=== PATIENT | male | born 1955 | race Caucasian/White ===

== ENCOUNTER 2019-03-10 06:54 | Observation (INO) | payer OTHER ==
--- NOTE | 2019-03-09 15:12 | GHP ---
[f rep st] PREOP HISTORY AND PHYSICAL CURRENT COMPLAINT: Right shoulder pain and weakness. HISTORY OF PRESENT ILLNESS: Mr. Morejon is a 63-year-old male with a history of pain and increasing weakness into his right shoulder. Imaging studies revealed lack of a rotator cuff superiorly. He wishes to have surgery in order to resolve the problem. ALLERGIES: He lists no drug allergies. CURRENT MEDICATIONS: Include albuterol, diazepam, Endocet, Proventil. PRIOR MEDICAL PROBLEMS: Include asthma and reflux. PRIOR SURGERIES: Include a left shoulder scope with rotator cuff repair, bilateral knee replacements, and hernia repair. SOCIAL HISTORY: He has never been a smoker. He is a social drinker. PHYSICAL EXAM: HEENT: Pupils are equal, round, reactive to light. CHEST: Clear to auscultation. HEART: Regular rate and rhythm. ABDOMEN: Soft and nontender. EXTREMITIES: Shoulder has decreased range of motion with decreased strength to external rotation and supraspinatus tenderness to Speed testing. IMAGING: MRI revealed severe osteoarthritic changes at the glenohumeral joint; acetabularization of the acromion; chronic tears of supraspinatus, subscapularis , infraspinatus, and multiple loose bodies; and ossification of the coracoacromial ligament. ASSESSMENT AND PLAN: Patient is status post right shoulder arthritis with rotator cuff arthropathy and loose bodies. PLAN: Take him to the operating room to undergo an open right reverse total shoulder replacement. /[id number]/MODL MTDD
[~2019-03-10 06:54] MED LIST: ROPIVACAINE 0.2% 80 MG, EPINEPHrine 0.2 MG, KETOROLAC TROMETHAMINE 30 MG, morphINE 10 M... IU ONE; TRANEXAMIC ACID 3,000 MG in NS (SYRINGE) 50 ML IRR ONE
[2019-03-10] MEDS ORDERED: ceFAZolin 2 GM/DEXTROSE 100 ML IV ONE (07:40)
[2019-03-10] MEDS ORDERED: LR 1,000 ML IV SCH (07:40)
[2019-03-10] MEDS ORDERED: LR 1,000 ML IV ONE (07:41)
[2019-03-10] MEDS ORDERED: MIDAZOLAM 2 MG/2 ML VIAL IVP ONE (08:23)
--- NOTE | 2019-03-10 08:23 | PDANEPAE ---
ANE History of Present Illness R shoulder reverse arthroplasty ANE Past Medical History - Cardiovascular History Hx Hypertension: Yes Hx Arrhythmias: No Hx Chest Pain: No Hx Coronary Artery / Peripheral Vascular Disease: Yes Hx CHF / Valvular Disease: No Hx Palpitations: No Cardiovascular History Comment: 2016 RESULT OF LEUKEMIA - Pulmonary History Hx COPD: No Hx Asthma/Reactive Airway Disease: No Hx Recent Upper Respiratory Infection: No Hx Oxygen in Use at Home: No Hx Sleep Apnea: No Sleep Apnea Screening Result - Last Documented: Negative Pulmonary History Comment: URI 11/2018. PREV PNEUMONIA - Neurologic History Hx Cerebrovascular Accident: No Hx Seizures: No Hx Dementia: No - Endocrine History Hx Diabetes: No - Renal History Hx Renal Disorders: No - Liver History Hx Hepatic Disorders: No - Neurological & Psychiatric Hx Hx Neurological and Psychiatric Disorders: No - Cancer History Hx Cancer: Yes Cancer History Comment: ACUTE MYELOID LEUKEMIA DX 12/2015,TREATED WITH CHEMO - Congenital Disorder History Hx Congenital Disorders: No - GI History Hx Gastrointestinal Disorders: Yes Gastrointestinal History Comment: HEARTBURN. MISSING TEETH - Chronic Pain History Chronic Pain: Yes (RT SHLDR) - Surgical History Prior Surgeries: CERVICAL FUSION. BILATERAL TOTAL KNEE'S ANE Review of Systems Review of systems is: negative Review of Systems: - Exercise capacity METS (RN): 5 METS ANE Patient History - Allergies Allergies/Adverse Reactions: No Allergies [NKDA] Allergy (Verified 09/23/09 11:50) - Home Medications Home medications: home medication list seen and reviewed Home Medications: Carvedilol [Coreg (*)] 3.125 mg PO BIDMEAL 02/27/19 [Last Taken 03/10/19] Lisinopril [Zestril 2.5 mg (*)] 2.5 mg PO DAILY 02/27/19 [Last Taken 03/08/19] Omeprazole 20 mg PO DAILY 03/03/19 [Last Taken 03/10/19] - NPO status NPO Since - Liquids (Date): 03/10/19 NPO Since - Liquids (Time): 03:00 NPO Since - Solids (Date): 03/09/19 NPO Since - Solids (Time): 23:30 - Anes Hx Anes Hx: no prior problems - Smoking Hx Smoking Status: Never smoked - Family Anes Hx Family Anes Hx: none ANE Labs/Vital Signs - Vital Signs Vital Signs: reviewed preoperatively; see RN documention for details Blood Pressure: 129/97 Heart Rate: 70 Respiratory Rate: 16 O2 Sat (%): 93 Height: 172.72 cm Weight: 86.183 kg ANE Physical Exam - Airway Neck exam: FROM Mallampati Score: Class 2 Mouth exam: normal dental/mouth exam - Pulmonary Pulmonary: no respiratory distress - Cardiovascular Cardiovascular: regular rate and rhythym - ASA Status ASA Status: III ANE Anesthesia Plan Anesthesia Plan: GA w LMA Regional Anesthesia: single shot NB, interscalene BP NB (post op pain)
[2019-03-10] MEDS ORDERED: MIDAZOLAM 2 MG/2 ML VIAL ONE (08:44)
[2019-03-10] MEDS ORDERED: ROPIVACAINE HCL 150 MG/30 ML INJ ONE (08:45)
[2019-03-10] MEDS ORDERED: POVIDONE-IODINE 20 ML in SODIUM CL IRRIG SOLUTION 500 ML IRR ONE (09:00)
--- NOTE | 2019-03-10 09:07 | PDHPUP ---
History & Physical Update H&P update statement: This history and physical update is based on an assessment of the patient which was completed after admission or registration (within 24 hours), but prior to the surgery/procedure. H&P update: H&P reviewed & patient examined, no change in patient's condition since H&P completed
[2019-03-10] MEDS ORDERED: TRANEXAMIC ACID 3,000 MG/50 ML BAG IRR ONE (09:15)
[2019-03-10] MEDS ORDERED: ONDANSETRON 4 MG/2 ML VIAL ONE (09:33)
[2019-03-10] MEDS ORDERED: PROPOFOL 200 MG/20 ML VIAL ONE (09:33)
[2019-03-10] MEDS ORDERED: LIDOCAINE 2% 100 MG/5 ML SYR ONE (09:33)
[2019-03-10] MEDS ORDERED: DEXAMETHASONE 4 MG/ML VIAL ONE (09:33)
[2019-03-10] MEDS ORDERED: fentaNYL 100 MCG/2 ML INJ ONE (09:33)
[2019-03-10] MEDS ORDERED: PHENYLEPHRINE HCL 100 MCG/ML SYR ONE (09:55)
[2019-03-10] MEDS ORDERED: PHENYLEPHRINE 10 MG/ML SDV ONE (10:25)
[2019-03-10] MEDS ORDERED: BUPIVACAINE/EPI 0.5% 30 ML SDV ONE (11:21)
[2019-03-10] MEDS ORDERED: ACETAMINOPHEN 325 MG TAB PO PRN (11:46)
[2019-03-10] MEDS ORDERED: ONDANSETRON 4 MG/2 ML VIAL IVP PRN ×2 (11:46→12:14)
[2019-03-10] MEDS ORDERED: TEMAZEPAM 15 MG CAP PO PRN (11:46)
[2019-03-10] MEDS ORDERED: OXYCODONE/APAP 5/325 TAB PO PRN (11:46)
--- NOTE | 2019-03-10 11:46 | POSTOPPROG ---
Post Op Note Date of Operation: 03/10/19 Surgeon: Elsie Rose [employer] Officer: natalie pacheco Anesthesia: GET(General Endotracheal), Other (Specify) Pre-op Diagnosis: r shoulder oa with rct Procedure: r reverse tsa Inf/Abcess present in the surg proc area at time of surgery?: No Depth: Deep Incisional (Fascial) EBL: 100-500
[2019-03-10] MEDS ORDERED: NALOXONE HCL 0.4 MG/ML INJ IVP PRN (12:14)
[2019-03-10] MEDS ORDERED: oxyCODONE IR 5 MG TAB PO PRN (12:14)
[2019-03-10] MEDS ORDERED: HYDROmorphONE/DILAUDID 1 MG/ML INJ IVP PRN (12:14)
[2019-03-10] MEDS ORDERED: fentaNYL 100 MCG/2 ML INJ IVP PRN (12:14)
[2019-03-10] MEDS ORDERED: DEXAMETHASONE 4 MG/ML VIAL IVP PRN (12:14)
[2019-03-10] MEDS ORDERED: MEPERIDINE 25 MG/0.5 ML AMP IVP PRN (12:14)
[2019-03-10] MEDS ORDERED: HYDROCODONE/APAP 5/325 TAB PO PRN (12:14)
[2019-03-10] MEDS ORDERED: PROMETHAZINE HCL 25 MG/ML INJ IVP PRN (12:14)
--- NOTE | 2019-03-10 12:15 | POSTANESTH ---
Post Anesthetic Evaluation Cardiovascular Status: Similar to Pre-Op Cond Respiratory Status: Similar to Pre-op Cond. Level of Consciousness/Mental Status: Can Participate in Eval, Mildly Sleepy, Arousable Pain Control: Adequate, Prn Tx Ordered Nausea/Vomiting Control: Adequate, Prn Tx Ordered Complications Possibly Related to Anesthesia: None Noted
--- NOTE | 2019-03-10 13:55 | GOP ---
[f rep st] OPERATIVE REPORT DATE OF OPERATION: 03/10/2019 SURGEON: Elsie Rose MD PAINTING TRADES WORKER: Edgar Sosa, certified PA whose presence was medically necessary. ANESTHESIA: By endotracheal intubation plus scalene block per surgeon's request. PREOPERATIVE DIAGNOSIS: Right shoulder arthritis with chronic rotator cuff tear. POSTOPERATIVE DIAGNOSIS: Right shoulder arthritis with chronic rotator cuff tear with multiple loose bodies. PROCEDURE PERFORMED: FINDINGS: DESCRIPTION OF PROCEDURE: The patient was brought to the operating room after the right side had bee n identified as correct side by the patient, nurse and physician once in the operating room. He was given a scalene block on the right side, then placed under anesthesia using endotracheal intubation. Once asleep, he was placed in a beach chair position with the right upper extremity sterilely preppe d and draped in the usual fashion using GSI solution. Once prepped and draped, incision was made jus t lateral to the coracoid process and extending to the axillary crease with sharp dissection carried down through the skin and subcutaneous layers with bleeding controlled using electrocautery. Blunt d issection was carried out at the deltopectoral interval. Cephalic vein taken with the deltoid, gaini ng access to the next layer of musculature. The conjoined tendon was then dissected free of the fasc ia. The biceps groove was able to be palpated. There was no biceps tendon noted to be within it. I ncision was made 1 cm medial to the lesser tuberosity with sharp dissection carried through the capsu lar layer and whatever remnant of subscapular there might have been, gaining access into the shoulder joint. The arm was then able to be externally rotated with the humeral head subluxed anteriorly. W as noted to have eburnated bone at its medial surface of both superior surfaces where it had been rub chaparro against the acromion for the last several years causing acetabularization of the acromion. Cutt ing guide was put into place. An oscillating saw was used to remove the hemisphere of the humeral he ad. Once achieved, canal finder was passed within the humeral canal. Multiple stems were then broac hed into the stem. Noted a size 14 fit best. It was therefore added onto a standard body, inserted as a trial into the humeral neck. A reamer was used to create a concavity associated with the xavier l socket. Trial was put into place and left in place while attention was turned to the glenoid. The arm was brought to a more neutral position, subluxed posteriorly. Glenoid retractors were placed an teriorly and posteriorly. Multiple loose bodies removed from the anterior portion of the shoulder, a s well as the inferior portion of the glenoid. The labrum was removed from the glenoid in order to h ave better access. A sizing guide was put on the inferior lip of the glenoid and the guidewire was p ut into place and a glenoid reamer was then put into place. Was used until achieving eburnated bone. Noted to have more bone reamed inferiorly than superiorly, suggesting an adequate inferior slope to the base plate. Once in place, the guidewire was left in place and a cannulated drill was passed ov er the guidewire. A trial was then put into place and lug drills were made superior and inferiorly. Once in place, an RSS glenoid base plate was put into place and noted to fit securely. A screw was placed in its center hole with a screw placed in superior and inferior portion and the anterior and p osterior portion with the superior and inferior screws, having locking caps placed on them and eccent sheri trial was put in place and noted to fit well with good overhang inferiorly at the glenoid neck. Therefore, the trial was removed. Attention was turned back to the humeral component with a size 14 press-fit stem attached onto a aldair dard size, reverse body and reverse body screw. Once these were assembled together and placed within the proximal femur, impacted into place. Was noted to fit securely. Attention was turned back to the glenoid which had an eccentric S5 mm glenosphere put into place and noted to fit securely and was fit with a secondary impactor also. Once in place, multiple trials wer e placed within the humerus. Noted a +9 liner seemed to fit best. Therefore, this was snapped into place. The arm was then reduced, brought through range of motion. Noted to have good tension into t he deltoid and the coracobrachialis. Joint cocktail was injected into the posterior capsule, and the area around the deltoid and the pectoralis. The wound was thoroughly irrigated with Betadine soluti on and then irrigated with tranexamic acid. The wound was then closed in layers to include 0 Vicryl suture for the anterior capsular layer and to tag the deltopectoral interval. 0 Vicryl and 2-0 Vicry l suture for subcutaneous layers and a 3-0 V-Loc suture in a running subcuticular stitch for the skin . 30 cc of Marcaine was infused around the actual skin incision itself and then the skin was dressed with Steri-Strips, Xeroform, 4 x 4, and Tegaderm. The patient was completely undraped in the operat ing room, had a sling placed on the right upper extremity. Was then woken up, extubated, transferred onto a stretcher, and sent to recovery room in good condition. PROCEDURE PERFORMED: Open right reverse total shoulder arthroplasty with removal of loose bodies x2. SURGEON: Elsie Rose M.D. INDICATIONS FOR SURGERY: This is a 63-year-old male with a long history of right shoulder pain worse isha with use and with time. He has noted decreased strength and decreased function into the right u pper extremity as time has gone on. X-ray exam reveals significant osteoarthritic changes within the shoulder. Recent MRI reveals a lack of his supraspinatus and infraspinatus, subscapularis with sign ificant muscle atrophy of each. He wishes to have surgery in order to resolve the problem. /[id number]/MODL
[2019-03-10] MEDS: KETOROLAC 15 MG/1 ML SDV IVP SCH ×2 (15:09→18:23)
--- NOTE | 2019-03-10 15:51 | GCON ---
[f rep st] CONSULTATION DATE OF CONSULTATION: 03/10/2019 REFERRING PHYSICIAN: Brent Lisa MD REASON FOR CONSULTATION: We have been asked by Dr. Lisa to evaluate Mr. Morejon with EKG changes following rotator cuff surgery. HISTORY OF PRESENT ILLNESS: Mr. Morejon is a 63-year-old gentleman with known coronary artery disease, who was admitted on 03/10/2019, for elective right rotator cuff repair. The patient's surgical course was uncomplicated, however, he was noted to have EKG changes in the postoperative period and we were consulted to help in the further management of this patient. The patient was diagnosed with coronary artery disease in 2015 when he presented with an elevated troponin in the setting of acute myeloid leukemia blast crisis. The patient ultimately underwent stress testing in July 2016, demonstrating a mid to distal anterior perfusion defect consistent with ischemia. This was followed by cardiac catheterization demonstrating a chronic total occlusion of his left anterior descending coronary artery. In April 2017, percutaneous coronary intervention of his left anterior descending coronary artery was attempted, but was unsuccessful secondary to failure to pass a wire. His most recent cardiovascular evaluation in November 2017, was an echocardiogram demonstrating normal left ventricular systolic function and no regional wall motion abnormalities. The patient remains moderately active riding his bicycle on a daily basis. His typical rides are anywhere from 1-10 miles. The patient denies symptoms of chest pain or significant dyspnea with this activity. He has been using aspirin, Coreg, and lisinopril on a regular basis. His postoperative EKG demonstrates lateral T-wave inversions and ST-segment depression. This appeared to be new when compared to an EKG from 2016. However , after obtaining an EKG from October 2017, these changes are fairly similar. At this time, patient denies symptoms of chest pain, palpitations, orthopnea, and PND. PAST MEDICAL HISTORY: 1. Coronary artery disease. 2. Hypertension. 3. Acute myeloid leukemia. 4. Degenerative joint disease. 5. Gastroesophageal reflux disease. 6. Asthma. MEDICATIONS: Please see medicine reconciliation form. ALLERGIES: No known drug allergies. SOCIAL HISTORY: Patient does not smoke. He denies problems with alcohol. FAMILY HISTORY: Notable for alcohol myopathy in his mother in her 40s. REVIEW OF SYSTEMS: A 10-point review of systems is negative except as noted in HPI. PHYSICAL EXAMINATION: GENERAL: The patient is resting comfortably in bed. He does not appear to be in acute distress. He responds appropriately to questions , but is somewhat tired in the postoperative setting. VITALS: Temperature is afebrile. Pulse 60, blood pressure 124/95, respiratory rate 16, SaO2 is 94% on nasal cannula. HEENT: Normocephalic, atraumatic. Extraocular muscles intact. NECK: No JVD. No bruits. LUNGS: Clear to auscultation bilaterally. CARDIOVASCULAR: Regular rate and rhythm. S1, S2. No murmurs, rubs, or gallops appreciated. ABDOMEN: Obese, nontender. Normoactive bowel sounds. EXTREMITIES: No clubbing, cyanosis, or edema. NEURO: Patient is awake, alert , orient x3. LABORATORY DATA: Troponin is pending. EKG demonstrates sinus rhythm, inferior infarct (old), anteroseptal infarct (old ), nonspecific anterior and lateral T-wave changes, consider ischemia. ASSESSMENT AND PLAN: Mr. Morejon is a 63-year-old gentleman with: 1. EKG changes - The patient was noted to have EKG changes in the postoperative setting. However, when compared to his electrocardiogram from October 31, 2017, they are not significantly changed. 2. Coronary artery disease - Patient has a history of coronary artery disease. His left anterior descending coronary artery is chronically occluded. Attempt at percutaneous coronary intervention in 2017 was unsuccessful. He is on appropriate medical management with aspirin, Coreg, and lisinopril. Will plan on obtaining an echocardiogram to look for a regional wall motion abnormality. I think it would also be prudent to obtain serial cardiac enzymes to exclude an ischemic event. Currently he is denying symptoms of angina and is EKG is not significantly changed from previous as noted above. /[id number]/MODL MTDD
--- NOTE | 2019-03-10 17:27 | ECHO ---
[email or web address] [id number] Main: [phone] Echocardiography Examination Transthoracic Name: Sanjay FULTON MR#: [id number] Study Date: 03/10/2019 Study Time: 01:57 PM Date of : 1955 Age: 63 year(s) Height: 172.7 cm (68 in.) Weight: 86.18 kg (190 lb.) BSA: 2 m2 Gender: Male Examination: Echo Contrast: Image Quality: Fair Rhythm: Heart Rate: BP: 111 mmHg/86 mmHg Indication: Abnormal EKG Procedure Staff Referring Physician: Envelope Adjuster: Sherie Orozco ZEE Reading Physician: Kris Harrison MD Requesting Provider: Ordering Physician: Kris Harrison MD Indication: Abnormal EKG Measurements Chambers AV/MV Label Value Normal Value Label Value Normal Value LVDd, 2D 4.4 cm (4.2cm - 5.9cm) AV PGmean 2 mmHg LVDs, 2D 3 cm (2.1cm - 4cm) AV Vmax 1.03 m/s IVSd, 2D 1.1 cm (0.6cm - 1.1cm) MV E Vmax 0.39 m/s LVPWd, 2D 1.1 cm (0.6cm - 1cm) MV A Vmax 0.68 m/s LADs, 2D 4 cm (3cm - 4cm) MV E/A 0.57 Additional Vessels MV E/E' lateral 7.8 Label Value Normal Value MV E/E' septal 7.8 (0.45 - 1.25) AoAsc 3.7 cm MV E' septal 0.05 m/s AoRoot, MM 3.5 cm (2.2cm - 3.7cm) MV E' lateral 0.05 m/s MV E/E' mean 7.8 MV E' mean 0.05 m/s Conclusions 1. The left ventricle is normal in size with low normal left ventricular systolic function. The ejection fraction is estimated at 55%. The apex is hypokinetic. 2. The aortic valve is not well seen. There is no aortic stenosis or insufficiency by Doppler. 3. The mitral valve is normal in structure. There is trivial mitral regurgitation. 4. The pulmonary artery pressure estimate is within normal limits. 5. No old studies for comparison. Patient: Sanjay FULTON Study Date: 03/10/2019 Page 1 of 2 01:57 PM Findings Left Ventricle: E/a wave reversal.. Left ventricle is normal in size. Low normal left ventricular systolic function. EF range is estimated at 55 % - 60 %. There is apical hypokinesis. IVS: The septum is intact. Right Ventricle: Normal size right ventricle. Right ventricular systolic function is normal. Left Atrium: The left atrium is normal in size. Right Atrium: The right atrium is normal in size. Mitral Valve: Mitral valve appears structurally normal. Trivial mitral regurgitation. No mitral valve stenosis. Aortic Valve: Aortic valve opens well (confirmed by low velocities).. No aortic valve regurgitation. There is no aortic stenosis. Tricuspid Valve: Tricuspid valve leaflets are normal in appearance and function. No tricuspid regurgitation. No tricuspid valve stenosis. Pulmonary artery pressure normal. Pulmonic Valve: Pulmonic leaflets exhibit normal cuspal separation. Trivial pulmonic valve regurgitation is present. There is no pulmonic valve stenosis. Aorta: The aorta is normal. The aortic root size in M-mode measures 3.5 cm. The ascending aorta measures 3.7 cm. Aorta Measurements AoRoot, MM is 3.5 cm. IVC: The inferior vena cava is not well visualized. Pericardium: No pericardial effusion. No pleural effusion present. Exam Details Procedure Ordered: Echo Procedure Status: Routine study Image Quality: Fair Facility Location: Cardiac Echo 1 (No Signature Object) Patient: Sanjay FULTON Study Date: 03/10/2019 Page 2 of 2 01:57 PM [id number]
--- NOTE | 2019-03-10 17:40 | PDHOSCONS ---
<Latoya Shields - Last Filed: 03/10/19 18:22> History and Physical - Chief Complaint Post-operative abnormal EKG - History of Present Illness 63 y/o male w/hx of CAD, asthma, GERD, acute myeloid leukemia, and DJD is s/p POD #0 open right reverse total shoulder arthroplasty by Dr. Elsie Rose. Hospital medicine has been asked to consult by cardiology. No complications pre-or intra-op however post-operatively, his EKG demonstrated lateral TWI and ST depressions. Dr. Harrison (chain link fence installer) has consulted the pt. He was evaluated in his room PCU. Reports feeling "fine." Denies CP, palpitations, SOB, nausea, vomiting. History Information - Allergies/Home Medication List Allergies/Adverse Reactions: No Allergies [NKDA] Allergy (Verified 09/23/09 11:50) Home Medications: Carvedilol [Coreg (*)] 3.125 mg PO BIDMEAL 02/27/19 [Last Taken 03/10/19] Lisinopril [Zestril 2.5 mg (*)] 2.5 mg PO DAILY 02/27/19 [Last Taken 03/08/19] Omeprazole 20 mg PO DAILY 03/03/19 [Last Taken 03/10/19] I have personally reviewed and updated: family history, medical history, social history, surgical history Past Medical History: GERD, acute myeloid leukemia, DJD - Past Medical History asthma, coronary artery disease, hypertension - Surgical History Additional surgical history: Left shoulder arthroplasty (2013), bilateral knee replacement (2008), hernia repair - Family History Additional family history: Mother w/alcohol myopathy - Social History Smoking Status: Never smoked Alcohol Use: Rarely Drug Use: None Review of Systems Review of Systems: ROS: 10pt was reviewed & negative except for what was stated in HPI & below Physical Exam Physical Exam: Labs and imaging were reviewed. Case discussed w/consulting physician, Dr. Tushar Chan. Troponin: 0.012 EKG: See HPI however similar findings to an EKG dated October 2017 Echocardiogram: Left ventricular is normal in size with low normal left ventricular systolic function. Ejection fraction is estimated at 55%. The apex is hypokinetic. The aortic valve is not very well seen and there is no aortic stenosis or insufficiency by Doppler. The mitral valve is normal in structure and there is trivial mitral regurgitation. The pulmonary artery pressure estimate is within normal limits. Temp Pulse Resp BP Pulse Ox 36.4 C 70 18 125/102 H 94 03/10/19 12:06 03/10/19 09:27 03/10/19 17:01 03/10/19 17:01 03/10/19 17:01 O2 (L/minute) 1 Constitutional: no apparent distress, appears nourished, not in pain Eyes: PERRL, anicteric sclera, EOMI Ears, Nose, Mouth, Throat: moist mucous membranes, hearing normal, ears appear normal, no oral mucosal ulcers Cardiovascular: regular rate and rhythym, no murmur, rub, or gallop, No edema Peripheral Pulses: 2+: dorsalis-pedis (R), dorsalis-pedis (L) Respiratory: no respiratory distress, no rales or rhonchi, clear to auscultation Gastrointestinal: normoactive bowel sounds, soft, non-tender abdomen, no palpable masses Genitourinary: no bladder fullness, no bladder tenderness Skin: warm, normal color, no rashes or abrasions, no fluctuance, no induration, No mottled Musculoskeletal: other (Receive nerve block to his right shoulder region; has no sensation at this point, is not experiencing any pain. Continues to have 2+ right radial pulse) Neurologic: AAOx3, CN II-XII Intact Psychiatric: interacting appropriately, not anxious, not encephalopathic, thought process linear Lymph, Heme, Immunologic: no cervical LAD, no supraclavicular LAD Lab Data & Imaging Review Troponin I < 0.012 ng/mL (0.000-0.034) 03/10/19 14:26 Assessment & Plan Assessment: 63 y/o male w/hx of CAD, HTN, GERD, acute myeloid leukemia and asthma presenting s/p POD #0 right total shoulder arthroplasty w/post-operative EKG change of lateral TWI and ST depression however has similar findings on an EKG in Oct 2017. Vital signs are the following: Blood pressure 102/84, pulse 67, respiration 14, temperature 36.4 degrees, 93% on room air. #EKG changes -Cards has been consulted and has evaluated the pt. Please refer to Dr. Harrison' s full evaluation report for details. EKG change similar to findings in Oct 2017. He is asymptomatic at this time. -Cont tele/PCU monitoring -Checking cardiac enzymes, cycling troponin. Checking lipid panel and LFTs. #Acute myeloid leukemia -In remission -Dx in 2016 w/elevated troponin during blast crisis #CAD -D/t problem named above, underwent stress testing which demonstrated mid to distal anterior perfusion defect consistent w/ischemia -Cath demonstrated chronic total occlusion of his LAD -PCI in 2017 was attempted to LAD but unsuccessful 2/2 failure to pass a wire -Cont coreg and lisinopril #POD #0 Right total shoulder arthroplasty -Follow ortho protocol -Pain management PO/IVP PRN -PT/OT to evaluate and treat #HTN: cont coreg and lisinopril #GERD: cont PPI Hospital medicine is happy to follow pt's progress through his hospital stay. Diet: Regular Code: Full VTE ppx: Stockings Dispo: Admit to obs <Tushar Chan - Last Filed: 03/10/19 20:53> History and Physical - History of Present Illness Review of Systems Review of Systems: Physical Exam Physical Exam: Temp Pulse Resp BP Pulse Ox 36.4 C 85 16 121/85 H 94 03/10/19 18:51 03/10/19 18:51 03/10/19 18:51 03/10/19 18:51 03/10/19 18:51 O2 (L/minute) 2 Lab Data & Imaging Review Total Bilirubin 0.8 mg/dL (0.1-1.4) 03/10/19 19:20 Conjugated Bilirubin 0.1 mg/dL (0.0-0.5) 03/10/19 19:20 Unconjugated Bilirubin 0.7 mg/dL (0.0-1.1) 03/10/19 19:20 AST 39 IU/L (17-59) 03/10/19 19:20 ALT 35 IU/L (21-72) 03/10/19 19:20 Alkaline Phosphatase 62 IU/L (38-126) 03/10/19 19:20 Troponin I < 0.012 ng/mL (0.000-0.034) 03/10/19 19:20 Total Protein 6.0 g/dL (6.3-8.2) L 03/10/19 19:20 Albumin 4.0 g/dL (3.5-5.0) 03/10/19 19:20 Triglycerides 219 mg/dL (40-150) H 03/10/19 19:20 Cholesterol 224 mg/dL (140-220) H 03/10/19 19:20 Cholesterol Risk Factr 1.4 (0.2-1.0) H 03/10/19 19:20 LDL Cholesterol, Calc 142 mg/dL (80-100) H 03/10/19 19:20 LDL Risk Factor 1.2 (0.2-1.0) H 03/10/19 19:20 VLDL Cholesterol 44 mg/dL (8-25) H 03/10/19 19:20 Non-HDL Cholesterol 186 mg/dL (90-129) H 03/10/19 19:20 HDL Cholesterol 38 mg/dL (40-65) L 03/10/19 19:20 LDL/HDL Ratio 3.74 RATIO (1.00-3.64) H 03/10/19 19:20 Cholesterol/HDL Ratio 5.89 RATIO (1.00-4.97) H 03/10/19 19:20 Assessment & Plan Assessment: Patient seen and evaluated independently and care plan reviewed with BLOOD BANK TECHNICIAN [place]-- agree with her assessment and plan as outlined above. Please see separate H&P for further details. Osteoarthritis of right shoulder (Acute)
[2019-03-10] MEDS: CARVEDILOL 3.125 MG TAB PO SCH (18:23)
[2019-03-10] MEDS: ceFAZolin 2 GM/DEXTROSE 100 ML IV SCH (18:38)
[2019-03-10] MEDS: DOCUSATE SODIUM 100 MG CAP PO SCH (20:13)
--- NOTE | 2019-03-10 21:10 | HOSPPROG ---
Hospitalist Progress Note Assessment/Plan: 63 y/o male w/hx of CAD, HTN, GERD, acute myeloid leukemia and asthma presenting s/p POD #0 right total shoulder arthroplasty with concerns for post operative ecg changes. # ecg changes: in the setting of known totally occluded LAD with e/o anterior/ lateral minimal st depressions and twi that in comparison to prior were not significantly changed. Discussed with cardiology, they have performed echo showing normal EF and hypokinetic apex that is also likely unchanged. Plan to monitor on tele, serial ecg and trops. 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 The one echo without may have been an under read. # AML: previously admitted with blast crisis and now noted to be in remission # s/o right total shoulder arthroplasty: pt/ot/pain management # HTN, GERD This is a medical consultation at the request of Dr. Harrison for management and care of medical issues as above. Patient new to my care. Old records reviewed and summarized as above. Care plan reviewed with Dr. Harrison and ELECTRICAL REPAIRER Cornelius, please see her separate H&P for further details. Objective: Vital Signs Temp Pulse Resp BP Pulse Ox 36.4 C 85 16 121/85 H 94 03/10/19 18:51 03/10/19 18:51 03/10/19 18:51 03/10/19 18:51 03/10/19 18:51 03/09/19 03/10/19 03/11/19 05:59 05:59 05:59 Intake Total 490 Balance 490 ICD10 Worksheet Patient Problems: Problems Problem Status Onset Osteoarthritis of right shoulder Acute Acute renal insufficiency Acute Cellulitis of left foot Acute Hyponatremia Acute Pneumonia Acute
[2019-03-11] MEDS: KETOROLAC 15 MG/1 ML SDV IVP SCH ×2 (01:04→06:23)
[2019-03-11] MEDS: ceFAZolin 2 GM/DEXTROSE 100 ML IV SCH (03:21)
[2019-03-11] MEDS: CARVEDILOL 3.125 MG TAB PO SCH (08:29)
[2019-03-11] MEDS: DOCUSATE SODIUM 100 MG CAP PO SCH (08:30)
[2019-03-11] MEDS ORDERED: LISINOPRIL 2.5 MG TAB PO SCH (09:00)
[2019-03-11] MEDS ORDERED: PANTOPRAZOLE SODIUM 40 MG TAB PO SCH (09:00)
[2019-03-11] MEDS ORDERED: ASPIRIN 325 MG TAB PO SCH (09:00)
--- NOTE | 2019-03-11 10:05 | SOAPPROG ---
SOAP Progress Note Assessment/Plan: Assessment: s/p right reverse total shoulder arthroplasty - POD 1 - performed by Dr. Rose Abnormal EKG post-operatively History CAD, unsuccessful PCI Plan: Continue d/c planning - likely home today Continue ASA 325 mg once daily, SCDs Keep sling in place at all times except when performing elbow ROM Follow up with cardiology as directed Keep wound dressings clean, dry and intact Dr. Rose will be coming to see the patient later this afternoon Subjective: Patient states his right shoulder feels ok. The nerve block has worn off, his right arm no longer feels heavy and there is no longer any numbness or tingling into his right hand or fingers. He is hoping to go home today. I spoke to Dr. Harrison, cardiology, and he felt from his stand point the patient could go home. He is recommending that the patient start a statin. Dr. Harrison feels that the patient did not have an ischemic event yesterday after surgery. Patient denies SOB, CP, fever, chills, numbness, tingling. Objective: Vital Signs Temp Pulse Resp BP Pulse Ox 36.9 C 76 10 L 115/77 95 03/11/19 07:39 03/11/19 07:39 03/11/19 07:39 03/11/19 07:39 03/11/19 07:39 03/10/19 03/11/19 03/12/19 05:59 05:59 05:59 Intake Total 740 Balance 740 Patient resting in bed, no acute distress. Sling is in place on the RUE. RUE surgical wound dressings are clean, dry and intact. Early developing ecchymosis noted along the anteromedial aspect of the right upper arm. He can flex and extend the right elbow, wrist and fingers. Vfx Artist strengths strong and symmetric. Grossly NVI distally. ICD10 Worksheet Patient Problems: Problems Problem Status Onset Osteoarthritis of right shoulder Acute Acute renal insufficiency Acute Cellulitis of left foot Acute Hyponatremia Acute Pneumonia Acute
--- NOTE | 2019-03-11 10:16 | ASMTCASEMG ---
Living Arrangements What is your living Answers: Alone arrangement? Who do you live with? Type Of Residence What kind of residence do Answers: Apartment you live in? Discharge Plan Comments Coordination Status Comments Notes: Pt is 1 day post-op for right rotator cuff repair. CM met with him this morning. Pt lives alone at home in an apartment in [place]. He has a history of CAD, HTN, acute myeloid leukemia, and ashtma. He does not use any assistive devices at home and is independent in his ADLs. No CM needs identified at this time. CM will be available should needs arise. CM D/C plan: TBD, likely independent to home Date Signed: 03/11/2019 10:15 AM Electronically Signed By:Eloise Valdes
--- NOTE | 2019-03-11 11:29 | PDDCSUM ---
Discharge Summary Discharge Summary: ADMISSION DIAGNOSIS: Right shoulder degenerative arthritis, rotator cuff tear DISCHARGE DIAGNOSIS: Right shoulder degenerative arthritis, rotator cuff tear OPERATION PERFORMED: March 10, 2019, Right reverse total shoulder arthroplasty CONDITION ON DISCHARGE: Improved HPI: The patient is a 63 year old male who has end-stage arthritis of his right shoulder and right rotator cuff tear that was not repairable. Clinical and radiographic features are consistent with this. Patient has failed attempts at conservative management, therefore, recommended operative right reverse total shoulder replacement. DESCRIPTION OF HOSPITAL COURSE: The patient was admitted to the hospital on the morning of surgery and underwent a right reverse total shoulder arthroplasty Postoperatively, patient had abnormalities noted on his EKG. He was transferred to PCU and was placed on telemetry and had serial cardiac enzymes ordered. Labs revealed serial troponin < 0.012, LDL 142, total cholesterol 224, triglycerides 219. Patient never experienced chest pain, shortness of breath, diaphoresis. He has a history of coronary artery disease and attempted PCI of left anterior descending coronary artery in 2017, but it was unsuccessful. Patient was seen by the hospitalist and furnace installer. They recommended he restart a statin and follow up as an outpatient. Dr. Harrison, cardiology, did not feel that the patient had an ischemic event and yesterday's post-operative EKG abnormalities were similar to changes seen on an EKG performed in 2018. Patient was treated with multimodal DVT prophylaxis, including aspirin, SCDs. Patient was seen by PT and made good progress elbow ROM. He was instructed to keep the sling on at all times except for when he performed elbow, wrist and finger ROM. Patient was able to void spontaneously. At the time of discharge, patient was afebrile, wound was clean and dry. DISPOSITION: The patient is discharged home in stable condition. He was cleared by the hospitalist and cardiology. Patient will continue to take aspirin 325 mg once daily for 10 days. Patient has a prescription for oxycodone for pain control. The patient will be seen by Dr. Rose's office in approximately 2 weeks. If there are any problems, patient is to call Dr. Concepcion office.
--- NOTE | 2019-03-11 12:22 | ASMTLACE ---
LACE Length of stay for Answers: Less than 1 day current admission Comorbidities - select Answers: Coronary Artery Disease all that apply Other Notes: acute myeloid leukemia # of Emergency department Answers: 0 visits in the last 6 months Score: 3 Date Signed: 03/11/2019 12:21 PM Electronically Signed By:Eloise Valdes
[2019-03-11 12:25] VITALS: BP 111/73
--- NOTE | 2019-03-11 12:47 | ASDISCHSUM ---
Discharge Information Plan Status:Home with No Needs Medically Cleared to Leave: Discharge Date: D/C Disposition: ADT D/C Disposition:Home, Routine, Self-Care Projected Discharge Date: Transportation at D/C: Discharge Delay Reason: Follow-Up Date: Discharge Slot: Final Diagnosis: Placement Information Patient Contact Information Contact Name:REDD Relationship:Mlgregorio Address: Work Phone: City: [facility] Phone: State/[place] Code: Email: Financial Information Financial Class:HMO and PPO Plans Primary Plan Desc:[facility] Primary Plan Number:[id number] Secondary Plan Desc: Secondary Plan Number: Assessment Information [facility] Initial CM Assessment Living Arrangements What is your living Answers: Alone arrangement? Who do you live with? Type Of Residence What kind of residence do Answers: Apartment you live in? Discharge Plan Comments Coordination Status Comments Notes: Pt is 1 day post-op for right rotator cuff repair. CM met with him this morning. Pt lives alone at home in an apartment in [place]. He has a history of CAD, HTN, acute myeloid leukemia, and ashtma. He does not use any assistive devices at home and is independent in his ADLs. No CM needs identified at this time. CM will be available should needs arise. CM D/C plan: TBD, likely independent to home Date Signed: 03/11/2019 10:15 AM Electronically Signed By:Eloise Valdes LACE LACE Length of stay for Answers: Less than 1 day current admission Comorbidities - select Answers: Coronary Artery Disease all that apply Other Notes: acute myeloid leukemia # of Emergency department Answers: 0 visits in the last 6 months Score: 3 Date Signed: 03/11/2019 12:21 PM Electronically Signed By:Eloise Valdes Case Management Discharge Plan Note Case Management Discharge Discharge Order Complete? Answers: Yes Patient to Obtain Answers: Independently Medications Transportation Arranged Answers: Other Notes: pt will arrange [employer] Family Notified Answers: No Notes: no one to notify per pt Discharge Comments Notes: Pt is being D/Cd independently to home today. He will have a follow-up appt with Dr. Rose in a couple of weeks. He is arranging a ride home with [employer]. Date Signed: 03/11/2019 12:45 PM Electronically Signed By:Eloise Valdes Intervention Information
--- NOTE | 2019-03-11 13:28 | HOSPPROG ---
Hospitalist Progress Note Assessment/Plan: 63 y/o male w/hx of CAD, HTN, GERD, acute myeloid leukemia and asthma presenting s/p POD #1 right total shoulder arthroplasty with concerns for post operative ecg changes. We were consulted by Dr. Harrison with cardiology for management and care of medical issues # ecg changes: in the setting of known totally occluded LAD with e/o anterior/ lateral minimal st depressions and twi that in comparison to prior were not significantly changed. Discussed with cardiology, they have performed echo showing normal EF and hypokinetic apex that is also likely unchanged. 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 The one echo without may have been an under read. # AML: previously admitted with blast crisis and now noted to be in remission # s/o right total shoulder arthroplasty: pt/ot/pain management # HTN, GERD #HLD: Statin to be started the pt is stable from a medical perspective for discharge. D/C per primary Subjective: no chest pain. feels ok. wants to discharge. Objective: Vital Signs Temp Pulse Resp BP Pulse Ox 36.8 C 75 16 111/73 94 03/11/19 11:39 03/11/19 12:24 03/11/19 12:24 03/11/19 12:24 03/11/19 12:24 03/10/19 03/11/19 03/12/19 05:59 05:59 05:59 Intake Total 740 Balance 740 - Physical Exam Constitutional: no apparent distress Eyes: PERRL Ears, Nose, Mouth, Throat: moist mucous membranes Cardiovascular: regular rate and rhythym, No edema Respiratory: no respiratory distress, no rales or rhonchi, clear to auscultation Gastrointestinal: normoactive bowel sounds, soft, non-tender abdomen Skin: warm Neurologic: AAOx3 Psychiatric: interacting appropriately, not anxious, not encephalopathic Lymph, Heme, Immunologic: No petechiae ICD10 Worksheet Patient Problems: Problems Problem Status Onset Osteoarthritis of right shoulder Acute Acute renal insufficiency Acute Cellulitis of left foot Acute Hyponatremia Acute Pneumonia Acute
--- NOTE | 2019-03-11 19:03 | SOAPPROG ---
TESS Progress Note Assessment/Plan: 1. EKG changes - Patient's postoperative EKG was notable for anterolateral ST and T-wave changes. When compared to his last EKG on 10/31/2017 there was no significant change. 2. Hyperlipidemia - Patient's LDL cholesterol was 142. His goal is less than 70 based on coronary artery disease. Will start rosuvastatin 10 mg daily. Patient will follow up with his primary coat padder for repeat labs in 3 months period of time. 3. CAD - Patient was diagnosed with coronary artery disease in 2015 when he presented with acute AML. At that time he was noted to have a mildly elevated troponin which led to follow up stress testing demonstrating an anterior perfusion defect. Coronary angiography was notable for chronic total occlusion of his left anterior descending coronary artery. PCI was attempted in 04/29 but was ultimately unsuccessful. Patient remains moderately active riding his bicycle up to 10 miles a day. He denies symptoms of chest pain or significant dyspnea with this activity. Discussed treatment options including continued medical management, repeat PCI, and coronary artery bypass grafting surgery. Patient wishes to continue with medical management at this time. Will continue aspirin, Coreg, and lisinopril. Will start rosuvastatin as noted above. 4. Observation - Patient was observed overnight given his EKG changes and known coronary artery disease. Patient denied symptoms of chest pain. His biomarkers were within normal limits. On further review his EKG was not significantly changed from his most recent. It is reasonable to discharge patient home with outpatient cardiology follow-up. Subjective: No chest pain No orthopnea or PND Discussed elevated cholesterol as well as findings on his catheterization report from 04/29. Objective: Vital Signs Temp Pulse Resp BP Pulse Ox 36.8 C 75 16 111/73 94 03/11/19 11:39 03/11/19 12:24 03/11/19 12:24 03/11/19 12:24 03/11/19 12:24 03/10/19 03/11/19 03/12/19 05:59 05:59 05:59 Intake Total 740 Balance 740 Physical Exam - Physical Exam General Appearance: alert, no apparent distress Respiratory: lungs clear Cardiac/Chest: regular rate, rhythm Abdomen: non-tender, soft Extremities: No pedal edema Neuro/Psych: oriented x 3 ICD10 Worksheet Patient Problems: Problems Problem Status Onset Osteoarthritis of right shoulder Acute Cellulitis of left foot Acute Hyponatremia Acute Acute renal insufficiency Acute Pneumonia Acute
[2019-03-12] MEDS ORDERED: ROSUVASTATIN CALCIUM 10 MG TAB PO SCH (09:00)
--- NOTE | 2019-03-17 12:14 | CPEKG ---
Test Reason : OPEN Blood Pressure : / mmHG Vent. Rate : 054 BPM Atrial Rate : 054 BPM P-R Int : 167 ms QRS Dur : 100 ms QT Int : 484 ms P-R-T Axes : 037 -07 141 degrees QTc Int : 459 ms Sinus rhythm Low voltage, precordial leads Abnrm T, consider ischemia, anterolateral lds Inferior Q waves noted Confirmed by Jaime Mcnally ([id number]) on 03/17/2019 12:14:12 PM Referred By: Elsie Rose Confirmed By:Jaime Mcnally
== END 2019-03-11 13:38 | disposition home or self-care (01) ==
LOC: F1N 06:54 → EDSTATUS 09:00 → F2W 17:33
PROVIDERS: ADMIT Orthopaedic Surgery; ATTEND Orthopaedic Surgery
PROC: 0RRJ00Z Replacement of Right Shoulder Joint with Reverse Ball and Socket Synthetic Substitute, Open Approach (ICD-10-PCS; principal; 2019-03-10 08:45)
DX: M19.011 Primary osteoarthritis, right shoulder (principal); M75.121 Complete rotator cuff tear or rupture of right shoulder, not specified as traumatic; R94.31 Abnormal electrocardiogram [ECG] [EKG]; I25.10 Atherosclerotic heart disease of native coronary artery without angina pectoris; I10 Essential (primary) hypertension; C92.01 Acute myeloblastic leukemia, in remission; J45.909 Unspecified asthma, uncomplicated; K21.9 Gastro-esophageal reflux disease without esophagitis; Z96.653 Presence of artificial knee joint, bilateral
CPT/HCPCS: 23472; 73030; 93306; 97161; 97166; 97535; G0378; C1713; J0171; J0690; J1100; J1885; J2001; J2250; J2270; J2370; J2405; J2704; J2795; J3010